=== PATIENT | female | born 1935 | race Caucasian/White ===

== ENCOUNTER 2023-07-19 15:03 | Outpatient (CLI) | payer MEDICARE | END 2023-07-19 15:04 | disposition home or self-care (01) | LOC: ULT 15:03 | PROVIDERS: ATTEND Family Medicine | DX: I73.9 Peripheral vascular disease, unspecified (principal); R60.9 Edema, unspecified; I77.9 Disorder of arteries and arterioles, unspecified | CPT/HCPCS: 93922 ==

== ENCOUNTER 2024-07-24 09:28 | Outpatient (CLI) | payer MEDICARE | END 2024-07-24 09:29 | disposition home or self-care (01) | LOC: RAD 09:28 | PROVIDERS: ATTEND Otolaryngology Plastic Surgery within the Head & Neck | DX: R13.14 Dysphagia, pharyngoesophageal phase (principal); R63.30 Feeding difficulties, unspecified | CPT/HCPCS: 74230 ==